=== PATIENT | male | born 2000 | race Caucasian/White ===

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

== ENCOUNTER 2020-09-06 12:42 | Emergency (ER) | payer OTHER ==
[~2020-09-06] VITALS: Ht 152.4 cm; Wt 95.3 kg
[~2020-09-06 12:42] MED LIST changes: +NAPROSYN500 MG PO
[2020-09-06 13:03] VITALS: BP 162/90
== END 2020-09-07 13:00 | disposition home or self-care (01) ==
LOC: ED 12:42
DX: U07.1 COVID-19 (principal); Z79.899 Other long term (current) drug therapy